=== PATIENT | male | born 1975 | race African-American/Black ===

== ENCOUNTER 2020-04-17 05:52 | Observation (INO) | payer OTHER ==
[2020-04-13 12:36] LABS: BASOPHILS % 0.7 % (0.0-1.0); EOSINOPHILS # (AUTO) 0.1 (0.0-0.4); EOSINOPHILS % 1.4 % (0.0-6.0); HEMATOCRIT 47.9 % (38.2-49.6); HEMOGLOBIN 15.4 g/dL (14.0-18.0); LYMPHOCYTES # (AUTO) 1.3 (1.0-3.2); LYMPHOCYTES % 22.1 % (18.0-39.1); MEAN CORPUSCULAR HEMOGLOBIN 25.9 pg (28-32); MEAN CORPUSCULAR HGB CONC 32.2 g/dL (31-35); MEAN CORPUSCULAR VOLUME 80.5 fL (81-99); MONOCYTES # (AUTO) 0.4 (0.2-0.8); MONOCYTES % 7.1 % (4.4-11.3); NEUTROPHILS # (AUTO) 3.9 (2.1-6.9); NEUTROPHILS % 68.3 % (38.7-80.0); PLATELET COUNT 247 x10e3/uL (140-360); RED BLOOD COUNT 5.95 x10e6/uL (4.3-5.7); RED CELL DISTRIBUTION WIDTH 13.2 % (11.7-14.4)
[~2020-04-17] VITALS: Ht 177.8 cm; Wt 90.7 kg
[~2020-04-17 05:52] MED LIST: ABILIFY5 MG PO; KLONOPIN0.5 MG PO; TRAZODONE HCL50 MG PO; WELLBUTRIN SR150 MG PO; ZOLOFT50 MG PO
[2020-04-17] MEDS ORDERED: CELECOXIB 200 MG CAP ONE (06:53)
[2020-04-17] MEDS ORDERED: CEFAZOLIN SOD 1 GM/NS 50ML 100 ML IV ONE (06:54)
[2020-04-17] MEDS ORDERED: GABAPENTIN 300 MG CAP ONE (06:54)
[2020-04-17] MEDS ORDERED: DEXAMETHASONE SOD PHOS 10 MG/1 ML VIAL ONE (06:54)
[2020-04-17] MEDS ORDERED: BUPIVACAINE 7.5MG/ML /DEXTROSE 82.5MG/ML 2 ML AMP INJ ONE (07:49)
[2020-04-17] MEDS ORDERED: VANCOMYCIN HCL 1,000 MG ONE (07:55)
[2020-04-17] MEDS ORDERED: SODIUM CHLORIDE 0.9% 500ML 500 ML ONE (07:55)
[2020-04-17] MEDS ORDERED: TRANEXAMIC ACID 1,000 MG/10 ML ML ONE (07:56)
[2020-04-17] MEDS ORDERED: BACITRACIN 50,000 UNIT VIAL ONE (07:56)
[2020-04-17] MEDS ORDERED: ROPIVACAINE 246.25 MG, EPINEPHRINE HCL 1:1000 1ML 0.5 MG, CLONIDINE HCL 0.08 MG, KETORO... INJ ONE ×5 (08:00)
[2020-04-17] MEDS ORDERED: ONDANSETRON HCL INJ 2MG/ML 2ML 2 MG/ML VIAL IV PRN (10:30)
[2020-04-17] MEDS ORDERED: ACETAMINOPHEN 650 MG SUPP PR PRN (10:30)
[2020-04-17] MEDS ORDERED: DIPHENHYDRAMINE HCL INJ 50 MG/ML VIAL IV PRN (10:30)
[2020-04-17] MEDS ORDERED: KETOROLAC TROMETHAMINE 30 MG/ML VIAL IV PRN (10:30)
[2020-04-17] MEDS ORDERED: DOCUSATE SODIUM 100 MG CAP PO PRN (10:30)
[2020-04-17] MEDS ORDERED: HYDROCODONE/APAP 5MG-325MG TAB PO PRN (10:30)
[2020-04-17] MEDS ORDERED: PROMETHAZINE HCL (IM) 25 MG/ML VIAL ONE (10:47)
--- OUTSIDE RECORDS SUMMARY | 2020-04-17 10:49 | XMS REPORT | Clinical Summary ---
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 Active traZODone (DESYREL) 100 Take 100 mg 0 MG tablet by mouth nightly. Active methylphenidate HCl Take by 0 (RITALIN ORAL) mouth. Active losartan-hydrochlorothiaz TK 1 T PO D 0 07/25 debbie (HYZAAR) 50-12.5 mg 8 per tablet Active Problems Not on file Social History Date Tobacco Use Types Packs/Day Years Used Never Smoker Smokeless Tobacco: Never Used Drinks/Week oz/Week Comments Alcohol Use No Sex Assigned at Date Recorded Not on file Industry Job Start Date Occupation Not on file Not on file Not on file Travel End Travel History Travel Start No recent travel history available. Last Filed Vital Signs Not on file Plan of Treatment Health Maintenance Due Date Last Done Comments INFLUENZA VACCINE 06/23/2020 Implants Device Identifier Shelf Expiration Date Model / Serial / L ot Implanted Type Area [facility] 12/24/2022 XL [id number] / [id number] / [id number] Epifix Xl 4 X 10 - Surgical Left: Elbow MIMEDX [id number] - [id number] Implants; [employer] Implanted: Qty: 1 on 04/30/2018 by [employer]; Armen Holley MD at [facility]; [facility] Wires Results Not on fileafter 04/17/2019 Insurance Type Payer Benefit Subscriber ID Effective Phone Address Plan / Dates Group PPO BCBS BCBS xxxxxxxxxxxx [id number] CHOICE resent PPO/DARLENE JESUS PPO Advance Directives For more information, please contact: [phone] Patient Adult Care Provider Explanation Type Date Recorded Advance Directives, 04/23/2018 2:38 PM Living Will and Medical Power of Auto Clutch Specialist
--- OUTSIDE RECORDS SUMMARY | 2020-04-17 10:49 | XMS REPORT ---
Author Author [facility] t Organization [facility] Address 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 Allergies, Adverse Reactions, Alerts This patient has no known allergies or adverse reactions. Social History Social Habit Start Date Stop Date Quantity Comments Source Sex Assigned At Rommel amyshaneka Meek Alcohol intake 2018-09-27 00:00:00 2018-09-27 00:00:00 Current non-drinker of alcohol (finding) Omid Eden Smoking Status Start Date Stop Date Source Never smoker Omid villatoro Medications Ordered Medication Name Filled Medication Name Start Date Stop Da te Current Medication? Ordering Clinician Indication Dosage Frequency Signature (SIG) Comments Components Source Sulfamethoxazole/Trimethoprim (Bactrim Ds Tablet) 1 Ea ch Tablet, 1 Each Oral Sulfamethoxazole/Trimethoprim (Bactrim Ds Tablet) 1 Each Tablet, 1 Each Oral 2018-10-22 00:00:00 2018-12-13 00:00:00 No José Manuel Gann Md 1 Twice A Day [facility] losartan-hydrochlorothiazide (HYZAAR) 50-12.5 mg per tablet 2018-08-18 00:00:00 Yes TK 1 T PO D Rommel allen Eden sertraline (ZOLOFT) 25 MG tablet 2018-04-30 11:36:13 Yes 25mg QD Take 25 mg by mouth daily. Omid Eden traZODone (DESYREL) 100 MG tablet 2018-04-30 11:36:13 Yes 100mg QD Take 100 mg by mouth nightly. Omid churchill methylphenidate HCl (RITALIN ORAL) 2018-04-30 11:36:13 Yes Take by mouth. Omid Eden Fluoxetine Hcl (Prozac) 20 Mg Capsule Fluoxetine Hcl (Prozac) 20 Mg Capsule Yes Daily [facility] Loratadine 10 Mg Tablet Loratadine 10 Mg Tablet Yes 10 Bedtime [facility] Methylphenidate Hcl 5 Mg Tablet Methylphenidate Hcl 5 Mg Tablet Yes Daily [facility] Rosuvastatin Calcium (Crestor) 5 Mg Tablet Rosuvastati n Calcium (Crestor) 5 Mg Tablet Yes Daily [facility] Trazodone Hcl 50 Mg Tablet Trazodone Hcl 50 Mg Tablet Yes 100 Bedtime [facility] Atorvastatin Calcium (Lipitor) 20 Mg Tablet, 10 Mg Ora l Atorvastatin Calcium (Lipitor) 20 Mg Tablet, 10 Mg Oral 2018-12-08 00:00:00 No 1 0 Daily [facility] Losartan/Hydrochlorothiazide (Losartan-H ctz 50-12.5 Mg Tab) 1 Each Tablet, 1 Tab Oral Losartan/Hydrochlorothiazide (Losartan-H ctz 50-12.5 Mg Tab) 1 Each Tablet, 1 Tab Oral 2018-12-08 00:00:00 No 1 Daily [facility] Procedures Procedure Date / Time Performed Performing Clinician [facility] e Computed tomography of brain without radiopaque contrast 201 07-31-28 00:00:00 NEGRITO PAPPAS [facility] Computed tomography of chest with contrast 2019-02-16 00:00:00 LINDA HONG [facility] X-ray of chest, two views 2019-02-15 00:00:00 ARNULFO GUIDRY V [facility] DRAIN/INJ JOINT/BURSA W/O US 2018-12-13 00:00:00 ESTHELA NAVARRO [facility] CYSTOSCOPY 2018-10-22 00:00:00 JOSÉ MANUEL GANN [facility] X-ray of chest, two views 2018-10-20 00:00:00 JOSÉ MANUEL GANN [facility] Plan of Care Planned Activity Planned Date Details Comments Source Future Scheduled Test 2020-06-23 00:00:00 INFLUENZA VACCINE [code = INFLUENZA VACCINE] Omid Eden Encounters Start Date/Time End Date/Time Encounter Type Admission Type [facility] Care Department Encounter ID Source 2019-07-20 01:49:00 2019-07-20 03:45:00 Departed Emergency Room 1 NEGRITO PAPPAS [facility] [id number] [facility] 2019-02-15 10:37:00 2019-02-17 08:25:00 Discharged Inpatient (obs) 1 NILO BOWEN [facility] [id number] [facility] 2019-01-07 23:17:00 2019-01-08 01:27:00 Departed Emergency Room [facility] [id number] [facility] 2018-12-13 05:00:00 2018-12-13 05:00:00 Registered Surgical Day Care [facility] [id number] [facility] 2018-10-22 08:46:00 2018-10-22 08:46:00 Registered Surgical Day Car e JOSÉ MANUEL DERAS [facility] [id number] [facility] Results Test Description Test Time Test Comments Results Result Comments Source Urine WBC 2019-07-20 03:29:00 Test Item Urine WBC (test code = 5821-4) 6-10 0-5 [facility] [id number] 03:29:00* Test Item Value Reference Range Interpretation Comments Urine RBC (test code = 13407-9) 11-20 0-5 [facility] Gwfachhf8423-37-50 03:29:00* Test Item Value Reference Range Interpretation Comments Urine Bacteria (test code = 98704-0) RARE NONE [facility] Epithelial Awyfu7277-53-12 03:29:00 * Test Item Value Reference Range Interpretation Comments Urine Epithelial Cells (test code = 07909-5) RARE NONE [facility] Bihix1158-32-73 03:19:00* Test Item Value Reference Range Interpretation Comments Urine Color (test code = 5778-6) YELLOW YELLOW [facility] Vleswbu2896-56-92 03:19:00* Test Item Value Reference Range Interpretation Comments Urine Clarity (test code = 72925-8) CLEAR CLEAR [facility] Specific Jyprrgy5075-75-63 03:19:00 * Test Item Value Reference Range Interpretation Comments Urine Specific [place] (test code = 5811-5) 1.020 1.010-1.02 5 [facility] [id number] 03:19:00* Test Item Value Reference Range Interpretation Comments Urine pH (test code = 43061-4) 8 5-7 [facility] Leukocyte Nvuofbmz3755-84-09 03:19:00* Test Item Value Reference Range Interpretation Comments Urine Leukocyte Esterase (test code = 28828-4) NEGATIVE NEGATIV E [facility] Uujtkzk3383-67-37 03:19:00* Test Item Value Reference Range Interpretation Comments Urine Nitrite (test code = 93463-6) NEGATIVE NEGATIVE [facility] Lffrzep7605-82-60 03:19:00* Test Item Value Reference Range Interpretation Comments Urine Protein (test code = 23606-3) NEGATIVE NEGATIVE [facility] Glucose (UA)2019-07-20 03:19:00* Test Item Value Reference Range Interpretation Comments Urine Glucose (UA) (test code = 97376-7) 3+ NEGATIVE [facility] Bllfymb4672-15-60 03:19:00* Test Item Value Reference Range Interpretation Comments Urine Ketones (test code = 57012-1) NEGATIVE NEGATIVE [facility] Nsajwzramnhk8687-69-58 03:19:00* Test Item Value Reference Range Interpretation Comments Urine Urobilinogen (test code = 39220-1) 0.2 0.2-1 [facility] Tzvzxtwbz8686-85-89 03:19:00* Test Item Value Reference Range Interpretation Comments Urine Bilirubin (test code = 1977-8) NEGATIVE NEGATIVE [facility] Ujkxt7389-10-10 03:19:00* Test Item Value Reference Range Interpretation Comments Urine Blood (test code = 57644-8) TRACE NEGATIVE [facility] Uzkot5758-71-94 02:57:00* Test Item Value Reference Range Interpretation Comments Sodium Level (test code = 2951-2) 137 136-145 [facility] HospitalPotassium Pkags1727-31-39 02:57:00* Test Item Value Reference Range Interpretation Comments Potassium Level (test code = 2823-3) 4.2 3.5-5.1 [facility] HospitalChloride Eoswr5301-87-81 02:57:00* Test Item Value Reference Range Interpretation Comments Chloride Level (test code = 2075-0) 103 98-107 [facility] HospitalCarbon Dioxide Equue5586-58-74 02:57:00* Test Item Value Reference Range Interpretation Comments Carbon Dioxide Level (test code = 2028-9) 29 22-29 [facility] HospitalAnion Agh2882-94-83 02:57:00* Test Item Value Reference Range Interpretation Comments Anion Gap (test code = 66508-9) 9.2 8-16 [facility] HospitalBlood Urea Dozgydgr4849-76-28 02:57:00* Test Item Value Reference Range Interpretation Comments Blood Urea Nitrogen (test code = 3094-0) 11 - [facility] HospitalCreatinine2019-08-28 02:57:00* Test Item Value Reference Range Interpretation Comments Creatinine (test code = 2160-0) 0.97 0.72-1.25 [facility] HospitalBUN/Creatinine Nzeyp0996-44-30 02:57:00* Test Item Value Reference Range Interpretation Comments BUN/Creatinine Ratio (test code = 3097-3) 11 05-17 [facility] HospitalEstimat Glomerular Filtration Rate 2019-07-20 02:57:00* Test Item Value Reference Range Interpretation Comments Estimat Glomerular Filtration Rate (test code = 660869925) > 60 >60 Ranges were taken from the National Kidney Disease Education Program and the [facility] Kidney Foundation literature.Reference ranges:60 or greater: Skoyyt05-86 ( for 3 consecutive months): Chronic kidney disease 15 or less: Kidney failureHuntsville Memorial HospitalGlucose Xlbhk6624-56-63 02:57:00* Test Item Value Reference Range Interpretation Comments Glucose Level (test code = STE8879) 162 74-118 [facility] HospitalCalcium Ncqbr2354-92-93 02:57:00* Test Item Value Reference Range Interpretation Comments Calcium Level (test code = 41980-1) 9.5 8.4-10.2 [facility] HospitalWhite Blood Evuwx9485-77-15 02:39:00* Test Item Value Reference Range Interpretation Comments White Blood Count (test code = 6690-2) 9.66 4.8-10.8 [facility] HospitalRed Blood Wgucg1966-43-58 02:39:00* Test Item Value Reference Range Interpretation Comments Red Blood Count (test code = 789-8) 5.37 4.3-5.7 [facility] HospitalHemoglobin2019-08-28 02:39:00* Test Item Value Reference Range Interpretation Comments Hemoglobin (test code = 51110-3) 14.5 14.0-18.0 [facility] HospitalHematocrit2019-08-28 02:39:00* Test Item Value Reference Range Interpretation Comments Hematocrit (test code = 4544-3) 44.2 38.2-49.6 [facility] HospitalMean Corpuscular Oubcpn4126-37-37 02:39:00* Test Item Value Reference Range Interpretation Comments Mean Corpuscular Volume (test code = 787-2) 82.3 81-99 [facility] HospitalMean Corpuscular Csdtvescvg7350-61-30 02:39:00* Test Item Value Reference Range Interpretation Comments Mean Corpuscular Hemoglobin (test code = 785-6) 27.0 28-32 [facility] HospitalMean Corpuscular Hemoglobin Concent 2019-07-20 02:39:00* Test Item Value Reference Range Interpretation Comments Mean Corpuscular Hemoglobin Concent (test code = 786-4) 32.8 31-35 [facility] HospitalRed Cell Distribution Ciaap7884-89-13 02:39:00* Test Item Value Reference Range Interpretation Comments Red Cell Distribution Width (test code = 56309-1) 13.2 11.7 -14.4 [facility] HospitalPlatelet Jdjxh9001-89-21 02:39:00* Test Item Value Reference Range Interpretation Comments Platelet Count (test code = 777-3) 240 140-360 [facility] HospitalNeutrophils (%) (Auto)2019-07-20 02:39:00 * Test Item Value Reference Range Interpretation Comments Neutrophils (%) (Auto) (test code = 57290-4) 89.7 38.7-80.0 [facility] HospitalLymphocytes (%) (Auto)2019-07-20 02:39:00 * Test Item Value Reference Range Interpretation Comments Lymphocytes (%) (Auto) (test code = 736-9) 7.1 18.0-39.1 [facility] HospitalMonocytes (%) (Auto)2019-07-20 02:39:00* Test Item Value Reference Range Interpretation Comments Monocytes (%) (Auto) (test code = 5905-5) 2.1 4.4-11.3 [facility] HospitalEosinophils (%) (Auto)2019-07-20 02:39:00 * Test Item Value Reference Range Interpretation Comments Eosinophils (%) (Auto) (test code = 713-8) 0.0 0.0-6.0 [facility] HospitalBasophils (%) (Auto)2019-07-20 02:39:00* Test Item Value Reference Range Interpretation Comments Basophils (%) (Auto) (test code = 706-2) 0.1 0.0-1.0 [facility] HospitalIM GRANULOCYTES %2019-07-20 02:39:00* Test Item Value Reference Range Interpretation Comments IM GRANULOCYTES % (test code = IM GRANULOCYTES %) 1.0 0.0- 1.0 [facility] HospitalNeutrophils # (Auto)2019-07-20 02:39:00* Test Item Value Reference Range Interpretation Comments Neutrophils # (Auto) (test code = 751-8) 8.7 2.1-6.9 [facility] HospitalLymphocytes # (Auto)2019-07-20 02:39:00* Test Item Value Reference Range Interpretation Comments Lymphocytes # (Auto) (test code = 14102-1) 0.7 1.0-3.2 [facility] HospitalMonocytes # (Auto)2019-07-20 02:39:00* Test Item Value Reference Range Interpretation Comments Monocytes # (Auto) (test code = 742-7) 0.2 0.2-0.8 [facility] HospitalEosinophils # (Auto)2019-07-20 02:39:00* Test Item Value Reference Range Interpretation Comments Eosinophils # (Auto) (test code = 711-2) 0.0 0.0-0.4 [facility] HospitalBasophils # (Auto)2019-07-20 02:39:00* Test Item Value Reference Range Interpretation Comments Basophils # (Auto) (test code = 704-7) 0.0 0.0-0.1 [facility] HospitalAbsolute Immature Granulocyte (auto 2019-07-20 02:39:00* Test Item Value Reference Range Interpretation Comments Absolute Immature Granulocyte (auto (lynette t code = Absolute Immature Granulocyte (auto) 0.10 0-0.1 [facility] HospitalCT BRAIN PL9267-22-05 02:30:00 [facility] [address] [address] Patient Name: JORDAN WAGNER MR #: [id number] : 1975 Age/Sex: 44/M Req #: [id number] Adm Physician: Ordered by: NEGRITO PAPPAS DO Report #: [id number] Location: ER Room/Bed: Procedure: [id number] CT/CT BRAIN WO Exam Date: 07/20/19 Exam Time: 219 REPORT STATUS: Signed EXAMINATION: Head CT without contrast. HISTORY:Headache, nausea and vomiting. COMPARISON:None. TECHNIQUE: Multidetector axial images were obtained from the foramen magnum to the vertex without contrast. The images were reconstructed using brain and bone algorithms. Thin section brain images were reformatted into coronal and sagittal planes. Dose modulation, iterative reconstruction, and/or weight based adjustment of the mA/kV was utilized to reduce the radiat ion dose to as low as reasonably achievable. Intravenous contrast: None IMAGE QUALITY: Acceptable. FINDINGS: Skull/scalp: No lytic or b lastic. lesions. No surgical changes. Parenchyma: No abnormal density. No acute hemorrhage, mass or acute major vascular territorial infarct. Art eries: No density suggestive of thrombosis. Dural sinuses: No abnormal density suggestive of thrombosis. Ventricles: No hydrocephalus or displac ement. Extra-axial spaces: No abnormal density. Brain volume: Norm al for age. Craniocervical junction: No mass, Chiari malformation, or basi lar invagination. Sella: No mass. Paranasal/mastoid sinuses: Imag ed portions unremarkable. IMPRESSION: No intracranial abnormality. Signed by: Dr. Sherice Patel M.D. on 07/20/2019 2:33 AM Dictated By: SHERICE PATEL MD 023 3 Transcribed By: NIKOLAI on 07/20/19 0233 COPY TO: NEGRITO PAPPAS DO Stress Test - Treadmill NAKL0784-94-94 12:57:00 [address] [address] Patient Name : JORDAN WAGNER MR #: [id number] : 1975 Age/Sex: 43/M Adm Physician : NILO BOWEN MD Admit Date : 02/15/19 Location : MED/SURG Room/Bed : [facility] REPORT: Thiago view Stress Test DATE OF STUDY: 02/16/2019 08:02:00 Stress Test - Tia dmill ONLY STUDY PERFORMED: Lexiscan stress test. INDICATION: Ches t pain. DESCRIPTION OF PROCEDURE: After informed consent, the patient was brought to the stress lab. He was given 10 millicurie of technetium-99m Myov iew and myocardial perfusion SPECT image was obtained in the horizontal long a xis and short axis and vertical long axis views. Subsequently, the patient wa s given 0.4 mg of Lexiscan over 10 seconds. The patient was given 33 mill icuries technetium-99m Myoview and myocardial perfusion SPECT images obtained in horizontal long and short axis and vertical long axis. Gated images were a lso obtained. The patient tolerated the procedure without any complication. REPORT: Baseline EKG shows sinus rhythm at 63 beats per minute. Normal a xis. Normal intervals. No acute ST-T changes. Parameters: 1. Restin g heart rate is 96 beats per minute. 2. Maximal heart rate is 96 beats per min [place]. 3. Resting blood pressure is 131/81 mmHg. 4. Maximum blood pressure 135 /86 mmHg. REASON FOR TERMINATION: End point attained. INTERPRETATIO N: 1. Negative chest pain. 2. Negative for arrhythmias. 3. Blood pressur e response consistent with Lexiscan. 4. No significant ST-T changes seen durin g Lexiscan infusion compared to baseline. 5. Analysis of SPECT images reveals uniform radioisotope uptake in all segments of myocardium without any signific ant perfusion defects. CONCLUSIONS: 1. No evidence of significant isc hemia or infarction on the study. 2. No wall motion abnormalities. 3. Overal l ejection fraction is 56%. S MD EAGLE Valle/LEONEL 14:5 0:31 /[id number] Signature Date Dictated By: LINDA VIEYRA MD Transcribed By: LEONEL on 02/22/19 <Electronically signed by LINDA VIEYRA MD><<Signature on File>>02/23/19 0910 COPY TO: CT CHEST K1211-20-51 20:02:00 [address] [address] Patient Name: JORDAN WAGNER MR #: [id number] : 1975 Age/Sex: 43/M Req #: [id number] Adm Physician: NILO BOWEN MD Ordered by: LINDA VIEYRA MD Report #: [id number] Location: MED/SURG Room/Bed: [facility] Procedure: [id number]/CT CHEST W Exam Date: 02/16/19 Exam Time: 1830 REPORT STATUS: Signed CT chest pulmonary embolism protocol CPT code: 66200 INDICATION: Exertional ch est pain r/o pe [id number] TECHNIQUE: Thin collimation axial images obtained through the level of the pulmonary arteries with additional im aging through the chest following the uneventful administration of 100 cc of l ow osmolar, nonionic intravenous contrast. Images reconstructed into coronal and sagittal MIPs for complete evaluation of the tortuous and overlapping pulm onary vascular structures and to reduce patient radiation dose. RADIATIO N DOSE: Total DLP: 607.5 mGy*cm Estimated effective dose: (DLP x 0 .015 x size factor) mSv CTDIvol has been reviewed. It is below the limits set by the Radiation Protocol Committee (RPC). Dose reduction techniques used: Automated exposure control, adjustment of the mAs and/or kVp according to patient size, standardized low-dose protocol, and/or iterative reconstructi on technique. COMPARISON: Chest x-ray 02/15/2019. FINDINGS: Pulmonary artery: No filling defects are appreciated within the main, left, right, lobar or visualized segmental pulmonary arteries to suggest embolism. Aorta: Mild ectasia of the arch. Lymph nodes: No enlarged axillary, supra clavicul ar, mediastinal, or hilar lymph nodes. Thyroid: Normal in size without ma ss in the visualized parenchyma.. Mediastinum: Thymic tissue has involuted. The heart is mildly enlarged with prominence of the left ventricular vail. P ericardial effusion measures 1.1 cm. The esophagus is collapsed Lungs: Airways: Clear. Right Lung: Mild bronchial wall thickening. Subtle air trapping in the lung base. No consolidation. No mass. Left Lung: Mild br onchial wall thickening. Subtle air trapping in the lung bases. No consolidati on. No mass. Pleura: No pleural effusion or pleural based mass.. Abdom en: Visualized portions of the upper abdomen demonstrate no mass or lymphadeno eva. Bones: Mild degenerative changes of the spine. No focal osseous lesi ons. Soft tissues: Unremarkable. IMPRESSION: 1. No evidence of p ulmonary embolus.. 2. Diffuse bronchial wall thickening suggestive of bronchi tis. Mild bibasilar air trapping is suggestive of small airways disease. 3. Mild cardiomegaly with left ventricular hypertrophy. Small pericardial effusio n. Signed by: Dr. Getachew Rothman MD on 02/16/2019 8:08 PM Dictate d By: GETACHEW ROTHMAN MD 07 COPY TO: Nelson VIEYRA MD Triglycerides Zktml5822-96-11 06:45:00* Test Item Value Reference Range Interpretation Comments Triglycerides Level (test code = 2571-8) 119 0-149 [facility] HospitalCholesterol Udtcu2527-53-56 06:45:00* Test Item Value Reference Range Interpretation Comments Cholesterol Level (test code = 2093-3) 235 0-199 Less than 200 mg/dL Low Mdyf754 - 239 mg/dL Borderline Hkfx656 m g/dl and greater High Risk [facility] HospitalLDL Owtwtyakquq9274-69-98 06:45:00* Test Item Value Reference Range Interpretation Comments LDL Cholesterol (test code = 2089-1) 160 60-130 [facility] HospitalHDL Mwlkivqgwck7996-18-48 06:45:00* Test Item Value Reference Range Interpretation Comments HDL Cholesterol (test code = 2085-9) 51 40-60 [facility] HospitalCholesterol/HDL Qdlnr2157-70-41 06:45:00 * Test Item Value Reference Range Interpretation Comments Cholesterol/HDL Ratio (test code = 9830-1) 4.6 3.9-4.7 [facility] HospitalCreatine Zuyakw5774-22-97 06:27:00* Test Item Value Reference Range Interpretation Comments Creatine Kinase (test code = 2157-6) 61 30-200 [facility] HospitalCreatine Kinase GS8005-77-38 06:27:00* Test Item Value Reference Range Interpretation Comments Creatine Kinase MB (test code = 07081-1) 0.50 0-5.0 [facility] HospitalTroponin B7073-22-68 06:27:00* Test Item Value Reference Range Interpretation Comments Troponin I (test code = DZJ7101) 0.002 0-0.300 [facility] HospitalB-Type Natriuretic Gisdjbw4807-84-78 10:23:00* Test Item Value Reference Range Interpretation Comments B-Type Natriuretic Peptide (test code = 36239-5) 21.0 0-100 [facility] BYJNV9213-01-60 10:16:00 [facility] [address] [address] Patient Name: JORDAN WAGNER MR #: [id number] : 1975 Age/Sex: 43/M Req #: [id number] Adm Physician: Ordered by: RANULFO GUIDRY MD Report #: [id number] Location: ER Room/Bed: Procedure: [id number] DX/CHEST 2 VIEWS Exam Date: 02/15/19 Exam Time: 0950 REPORT STATUS: Signed EXAM: CHEST 2 VIEWS, PA and lateral DATE: 02/15/2019 Time stamp on exam: 9:59 AM INDICATION: Chest pain COMPARISON: 10/20/2018 FINDINGS: LINES/TUBES: No ne LUNGS: No consolidations or edema. PLEURA: No effusions or pneumot horax. HEART AND MEDIASTINUM: Normal size and contour. BONES AND SOFT TISSUES: No acute findings. IMPRESSION: No acute thoracic abnormality. Signed by: Dr. Salomón Beckham DO on 02/15/2019 10:17 AM Di ctated By: SALOMÓN BECKHAM DO 1017 COPY TO: MEET GUIDRY MD Total Yhwsoalos1034-37-22 10:14:00* Test Item Value Reference Range Interpretation Comments Total Bilirubin (test code = 1975-2) 0.4 0.2-1.2 [facility] HospitalAspartate Amino Transf (AST/SGOT) 2019-02-15 10:14:00* Test Item Value Reference Range Interpretation Comments Aspartate Amino Transf (AST/SGOT) (test code = Aspartate Amino Transf (AST/SGOT)) 14 5-34 [facility] HospitalAlanine Aminotransferase (ALT/SGPT) 2019-02-15 10:14:00* Test Item Value Reference Range Interpretation Comments Alanine Aminotransferase (ALT/SGPT) (test code = 1742-6) 20 0-55 [facility] HospitalTotal Zigqoiu1219-86-69 10:14:00* Test Item Value Reference Range Interpretation Comments Total Protein (test code = 2885-2) 6.6 6.5-8.1 [facility] HospitalAlbumin2019-03-26 10:14:00* Test Item Value Reference Range Interpretation Comments Albumin (test code = 1751-7) 3.6 3.5-5.0 [facility] HospitalGlobulin2019-03-26 10:14:00* Test Item Value Reference Range Interpretation Comments Globulin (test code = 40171-8) 3.0 2.3-3.5 [facility] HospitalAlbumin/Globulin Auzqn2772-67-75 10:14:00 * Test Item Value Reference Range Interpretation Comments Albumin/Globulin Ratio (test code = 1759-0) 1.2 0.8-2.0 [facility] HospitalAlkaline Vwnlahtyvpr4265-84-80 10:14:00* Test Item Value Reference Range Interpretation Comments Alkaline Phosphatase (test code = 6768-6) 62 40-150 [facility] [id number] 10:06:00* Test Item Value Reference Range Interpretation Comments Prothrombin Time (test code = 5902-2) 12.4 11.9-14.5 [facility] International Ratio 2019-02-15 10:06:00* Test Item Value Reference Range Interpretation Comments Prothromb Time International Ratio (test code = 6301-6) 0.88 Oral Anticoagulant Therapy INR Values:1. Low Intensity Therapy 1.5 - 2.02 . Moderate Intensity Therapy 2.0 - 3.03. High Intensity Therapy(1) 2.5 - 3. 54. High Intensity Therapy(2) 3.0 - 4.05. Panic Value INR > 5.0 [facility]Act[facility] Partial Thromboplast Time 2019-02-15 10:06:00* Test Item Value Reference Range Interpretation Comments Activated Partial Thromboplast Time (test code = 24992-2) 27.9 23.8-35.5 [facility] HospitalCHEST 2 [id number] 18:48:00 [facility] [address] [address] Patient Name: JORDAN WAGNER MR #: [id number] : 1975 Age/Sex: 43/M Req #: [id number] Adm Physician: Ordered by: JOSÉ MANUEL GANN MD Report #: [id number] Location: OR Room/Bed: Procedure: [id number] DX/CHEST 2 VIEWS Exam Date: 10/20/18 Exam Time: 1739 REPORT STATUS: Signed EXAMINATI ON: CHEST 2 VIEWS INDICATION: ORDER [id number] PRE ADMIT COMPARISON: None FINDINGS: PA and lateral views TUBES and LINES: None. LUNGS: Lungs are well inflated. Lungs are clear. There is no evidence of pneumonia or pulmonary edema. PLEURA: No pleu ral effusion or pneumothorax. HEART AND MEDIASTINUM: The cardiomediastinal silhouette is unremarkable. BONES AND SOFT TISSUES: No acute osseous lesion. Soft tissues are unremarkable. UPPER ABDOMEN: No free air under the diaphragm. IMPRESSION: No acute thoracic abnormality. Si gned by: Dr. Evan Price MD on 10/20/2018 6:48 PM Dictated By: EVAN DOHERTY MD 47 Transcri bed By: NIKOLAI on 10/20/181847 COPY TO: JOSÉ MANUEL GANN MD
[2020-04-17 12:06] LABS: BASOPHILS % 0.3 % (0.0-1.0); HEMATOCRIT 44.6 % (38.2-49.6); HEMOGLOBIN 13.6 g/dL (14.0-18.0); LYMPHOCYTES # (AUTO) 0.8 (1.0-3.2); LYMPHOCYTES % 8.7 % (18.0-39.1); MEAN CORPUSCULAR HGB CONC 30.5 g/dL (31-35); MEAN CORPUSCULAR VOLUME 85.1 fL (81-99); MONOCYTES # (AUTO) 0.1 (0.2-0.8); NEUTROPHILS # (AUTO) 8.2 (2.1-6.9); NEUTROPHILS % 89.5 % (38.7-80.0); PLATELET COUNT 206 x10e3/uL (140-360); RED BLOOD COUNT 5.24 x10e6/uL (4.3-5.7); RED CELL DISTRIBUTION WIDTH 13.2 % (11.7-14.4)
--- NOTE | 2020-04-17 12:12 | Diagnostic Imaging Report ---
X-ray left hip single view portable History: Status post left hip surgery Findings: Status post left hip total arthroplasty with soft tissue air and surgical eduardo. The hardware is in near-anatomic alignment. Impression: Status post left hip portal arthroplasty. Signed by: Fransico Velasquez MD on 04/17/2020 12:09 PM
--- NOTE | 2020-04-17 12:24 | Operative Report ---
DATE OF PROCEDURE: 04/17/2020 SURGEON: Marquez Rosales MD GUITAR INSTRUCTOR: Daron Back, certified PA. PREOPERATIVE DIAGNOSIS: Osteoarthritis, left hip. POSTOPERATIVE DIAGNOSIS: Osteoarthritis, left hip. PROCEDURE: Left total hip arthroplasty. INDICATIONS: The patient is a 44-year-old gentleman with advanced osteoarthritis of his left hip. He has failed conservative management and would like to proceed with a left total hip replacement. The risks and benefits of the procedure have been discussed. The possibility of future revision procedures due to his age have been explained. All of his questions have been answered. He states he understands and wishes to proceed. PROCEDURE IN DETAIL: The patient was brought to the operating room and given a spinal anesthetic. He received prophylactic antibiotics and tranexamic acid in the holding area. He was positioned in the right lateral decubitus position. His left hip was prepped and draped in a sterile manner. A preoperative time-out was performed. A posterior approach was made to the left hip. A slightly bigger incision and normal was necessary due to the bulk of his muscle. A deep Charnley self-retaining retractor was placed. Hemostasis was obtained with electrocautery. The posterior capsule was exposed and carefully released. Additional hemostasis was obtained with electrocautery. The hip was dislocated. Complete loss of articular cartilage in the weightbearing surface of the femoral head was noted. An oscillating saw was used to resect the femoral head. Acetabular retractors were carefully placed. Exposure was challenging due to the contracted hip. Marginal osteophytes and labral remnants were excised. The true floor of the acetabulum was then established with a 46 mm reamer. The socket was sequentially reamed up to 57 mm. This accomplished bleeding hemispherical cancellous bone. A Татьяна Biomet 58 mm OsseoTi socket was then impacted into place. Fixation was augmented with a single 30 mm cancellous screw placed into the ilium. Excellent bone quality was encountered. A highly cross-linked polyethylene liner with a 36 mm inner diameter in no posterior elevation was seated. Care was taken to make sure that there was no evidence of soft tissue interposition. Throughout all portions of the case, the hip was repeatedly irrigated at intervals using a combination of a shower tip pulsatile lavage and a spray mixture of diluted vancomycin and polymyxin spray. The socket was packed with a moistly soaked lap sponge. Attention was directed towards the proximal femur. A box cutting osteotome and taper pin reamer were used to establish entry to the femoral canal. The Татьяна taper lock broaches were impacted into place. A size 13 stem had good canal fill and stability. A trial reduction was performed. I felt that a standard 36 mm head provided appropriate offset, soft tissue balancing in full range of motion and stability. The trial implants were removed. The hip was further irrigated with the shower tip pulsatile lavage. The implants were seated. A ceramic 36 mm head was impacted onto the stem. A final reduction was performed. The hip was once again put through a full arc of motion and noted to have good stability. Hoahaoism of limb length, equal. The posterior capsule was repaired with #2 Ethibond. The deep fascia was closed after sprinkling 500 mg of vancomycin powder into the deep wound. A 100 mL premixed pericapsular CHAPIS injection was placed into the surrounding soft tissue. The skin was closed with subcuticular Vicryl and eduardo. A sterile Aquacel bandage was applied. The patient was returned to the supine position. He was transported to the recovery room in stable condition. Estimated blood loss was 100 mL. At the end of the procedure, all needle and sponge counts were correct. Marquez Rosales MD DR/LEONEL /[id number]
[2020-04-17 12:46] VITALS: BP 117/79
[2020-04-17] MEDS ORDERED: SODIUM CHLORIDE 0.9% 1000ML 1,000 ML IV SCH (12:50)
[2020-04-17 12:54] VITALS: BP 117/79
--- NOTE | 2020-04-17 12:55 | NUR ---
patient received from pacu via stretcher. see admit assess. patient very verbally aggressive and yelling at . no c/o pain at this time. vitals stable with no distress.
--- NOTE | 2020-04-17 15:14 | NUR ---
DR ONEIL OFFICE PREARRANGED FOLLOWING DISCHARGE PLAN OF: HOME TO [address] [facility] [address] HOME HEALTH WITH [facility] CONFIRMED WITH [facility] [phone] DME 3 IN ONE COMMODE. AND ROLLING WALKER WITH WHEELS. PROVIDED BY [facility] [phone] GAVE CARD FOR QUESTIONS AND OR CONCERNS.
[2020-04-17 16:26] VITALS: BP 117/73
[2020-04-17] MEDS: CEFAZOLIN SOD 1 GM/NS 50ML 50 ML IV SCH ×2 (17:15→23:46)
[2020-04-17] MEDS: CELECOXIB 200 MG CAP PO SCH (17:15)
[2020-04-17] MEDS: HYDROCODONE/APAP 7.5MG-325MG 1 EA TAB PO PRN (17:42)
--- NOTE | 2020-04-17 18:56 | NUR ---
RECEIVED REPORT FROM PREVIOUS NURSE. CALL LIGHT WITHIN REACH. PATIENT IN BED.
[2020-04-17 19:05] VITALS: BP 118/75
[2020-04-17] MEDS ORDERED: PROPOFOL IV EMULSION 10 MG/ML 20 ML VIAL ONE (19:40)
[2020-04-17] MEDS ORDERED: ONDANSETRON HCL INJ 2MG/ML 2ML 2 MG/ML VIAL ONE (19:40)
[2020-04-17] MEDS: ASPIRIN 325 MG TAB PO SCH (20:04)
[2020-04-17] MEDS ORDERED: ZOLPIDEM TARTRATE 5 MG TAB PO PRN (21:00)
[2020-04-17] MEDS ORDERED: TRAZODONE HCL 50 MG TAB PO SCH (21:00)
[2020-04-18] VITALS: BP 107/72
[2020-04-18 03:45] VITALS: BP 118/77
[2020-04-18] MEDS: HYDROCODONE/APAP 7.5MG-325MG 1 EA TAB PO PRN (04:25)
--- NOTE | 2020-04-18 05:33 | Consultation ---
DATE OF CONSULTATION: REASON FOR CONSULTATION: Postop medical management. HISTORY OF PRESENT ILLNESS: The patient is a 44-year-old gentleman, who is status post left total hip arthroplasty, osteoarthritis, who is doing well postoperatively with minimal pain. He states pain is well controlled with medication. PAST MEDICAL HISTORY: Hypertension. MEDICATIONS: None. ALLERGIES: NONE. SOCIAL HISTORY: Nonsmoker and nondrinker. FAMILY HISTORY: Noncontributory. PHYSICAL EXAMINATION: VITAL SIGNS: Temperature 98.3, pulse 80, blood pressure 107/72, sats 96% on room air. GENERAL: He is no apparent distress, lying in bed. NECK: Supple. CARDIOVASCULAR: Regular rate and rhythm. LUNGS: Clear to auscultation bilaterally. ABDOMEN: Good bowel sounds. Soft and nontender. EXTREMITIES: No clubbing or cyanosis. NEUROLOGIC: Nonfocal. ASSESSMENT AND PLAN: 1. Status post left total hip arthroplasty. Continue postoperative care. 2. Anemia. Check a CBC. 3. Hypertension. Continue to monitor. 4. Left hip pain. We will continue with pain control. See hospital chart for full details. MD NOEMY Elder/LEONEL /[id number]
[2020-04-18 05:45] LABS: HEMATOCRIT 37.2 % (38.2-49.6); HEMOGLOBIN 11.9 g/dL (14.0-18.0)
--- NOTE | 2020-04-18 07:17 | NUR ---
GAVE REPORT TO ONCOMING NURSE. CALL LIGHT WITHIN REACH. PATIENT IN BED. ROUNDING DONE.
[2020-04-18 07:47] VITALS: BP 120/74
[2020-04-18] MEDS: CELECOXIB 200 MG CAP PO SCH (09:00)
[2020-04-18] MEDS ORDERED: ONDANSETRON HCL 4 MG ORAL DISINTEGRATING TAB PO PRN (09:00)
[2020-04-18] MEDS: CEFAZOLIN SOD 1 GM/NS 50ML 50 ML IV SCH (09:00)
[2020-04-18] MEDS: ASPIRIN 325 MG TAB PO SCH (09:00)
[2020-04-18 09:10] VITALS: BP 120/74
[2020-04-18] MEDS ORDERED: ACETAMINOPHEN 1000 MG/100 ML IV PRN (10:30)
[2020-04-18 11:58] VITALS: BP 126/78
--- NOTE | 2020-04-18 12:28 | NUR ---
SPOKE WITH LOLI AT [facility] SHE STATES THAT THEY CANNOT DELIVER THE WALKER OR BEDSIDE BECAUSE IT WAS A HIP SURGERY, NOTIFIED DR ONEIL OFFICE AND ISSUED A WALKER
--- NOTE | 2020-04-18 14:28 | NUR ---
DISCHARGE INSTRUCTIONS REVIEWED WITH PT , VERBALIZED UNDERSTANDING, WHEELED OFF UNIT VIA WC, NO CHANGE IN CONDITION
== END 2020-04-18 14:28 | disposition home health service (06) ==
LOC: OR 05:52 → EDSEX 08:30 → PACU V 10:32 → MED/SURG 12:10 → UNDODISOB 04-18 14:28
PROVIDERS: ADMIT Specialist; ATTEND Specialist
DX: M16.12 Unilateral primary osteoarthritis, left hip (principal); I10 Essential (primary) hypertension; F41.9 Anxiety disorder, unspecified; D64.9 Anemia, unspecified; Z11.59 Encounter for screening for other viral diseases; Z01.810 Encounter for preprocedural cardiovascular examination; Z01.812 Encounter for preprocedural laboratory examination
CPT/HCPCS: 27130; 36415 ×3; 72170; 85014; 85018; 85025 ×2; 86850; 86900; 86920; 87635; 93005; 97116 ×2; 97139; 97161; 97530; C1713 ×3; C1734; C1776; G0378 ×2; J0171; J0690 ×2; J1100; J1885; J2405; J2550; J2704; J2795; J3370; J7030; J7040

== ENCOUNTER 2020-06-09 08:44 | Emergency (ER) | payer OTHER ==
[~2020-06-09] VITALS: Ht 177.8 cm; Wt 90.7 kg
[2020-06-09] MEDS ORDERED: KETOROLAC TROMETHAMINE 30 MG/ML VIAL IV STA (09:04)
[2020-06-09 09:35] LABS: BASOPHILS # (AUTO) 0.1 (0.0-0.1); EOSINOPHILS # (AUTO) 0.1 (0.0-0.4); EOSINOPHILS % 2.4 % (0.0-6.0); HEMATOCRIT 45.4 % (38.2-49.6); HEMOGLOBIN 14.3 g/dL (14.0-18.0); LYMPHOCYTES # (AUTO) 1.4 (1.0-3.2); LYMPHOCYTES % 28.4 % (18.0-39.1); MEAN CORPUSCULAR HEMOGLOBIN 25.4 pg (28-32); MEAN CORPUSCULAR HGB CONC 31.5 g/dL (31-35); MEAN CORPUSCULAR VOLUME 80.8 fL (81-99); MONOCYTES # (AUTO) 0.4 (0.2-0.8); MONOCYTES % 7.5 % (4.4-11.3); NEUTROPHILS % 60.3 % (38.7-80.0); PLATELET COUNT 278 x10e3/uL (140-360); RED BLOOD COUNT 5.62 x10e6/uL (4.3-5.7)
[2020-06-09 09:52] LABS: ALANINE AMINOTRANSFERASE 26 IU/L (0-55); ALBUMIN 4.1 g/dL (3.5-5.0); ALBUMIN/GLOBULIN RATIO 1.2 (0.8-2.0); ALKALINE PHOSPHATASE 94 IU/L (40-150); ANION GAP 12.4 mmol/L (8-16); BLOOD UREA NITROGEN 10 mg/dL (7-26); BUN/CREATININE RATIO 12 (6-25); CALCIUM 9.3 mg/dL (8.4-10.2); CARBON DIOXIDE 28 mmol/L (22-29); CHLORIDE 104 mmol/L (98-107); CREATINE KINASE 111 IU/L (30-200); CREATININE, SERUM 0.85 mg/dL (0.72-1.25); EST GLOMERULAR FILTRATION RATE > 60 ML/MIN (60-); GLUCOSE 102 mg/dL (74-118); INR 0.91; POTASSIUM 4.4 mmol/L (3.5-5.1); PROTHROMBIN TIME 12.8 seconds (11.9-14.5); SODIUM 140 mmol/L (136-145)
[2020-06-09 09:53] LABS: PARTIAL THROMBOPLASTIN TIME 29.2 seconds (23.8-35.5)
--- NOTE | 2020-06-09 10:56 | Emergency Department Note ---
History of Present Illnes History of Present Illness Chief Complaint: Chest Pain History of Present Illness This is a 44 year old male PATIENT IN FROM HOME WITH COMPLAINTS OF CHEST PAIN/PRESSURE SINCE LAST NIGHT; RATES PAIN 3/10. PATIENT ALERT AND ORIENTED, RESP EVEN AND NONLABORED, APPEARS IN NO DISTRESS. Historian: Patient Arrival Mode: Car Clinical Laboratory Aides Teacher Required: No Onset (how long ago): day(s) (last night) Location: CHEST Quality: PAIN Radiation: Reports non-radiation Severity: moderate (5) Onset quality: gradual Timing of current episode: intermittent Progression: waxing and waning Chronicity: new Context: Denies recent illness Relieving factors: none Exacerbating factors: none Associated symptoms: Reports denies other symptoms Treatments prior to arrival: none Past Medical/Family History Physician Review I have reviewed the patient's past medical and family history. Any updates have been documented here. Past Medical History Recent Fever: No Clinical Suspicion of Infectio: No New/Unexplained Change in Ment: No Past Medical History: Anxiety, Depression Past Surgical History: None Other Surgery: LEFT HIP REPLACEMENT Social History Smoking Cessation: Never Smoker Counseling Performed: No Alcohol Use: None Any Illegal Drug Use: No TB Exposure/Symptoms: No Physically hurt or threatened: No Family History Family history of heart diseas: No Other Any Pre-Existing Lines (PICC,: No Review of Systems Review of Systems Constitutional: Reports no symptoms EENTM: Reports no symptoms Cardiovascular: Reports as per HPI Respiratory: Reports no symptoms Gastrointestinal: Reports no symptoms Genitourinary: Reports no symptoms Musculoskeletal: Reports no symptoms Integumentary: Reports no symptoms Neurological: Reports no symptoms Psychological: Reports no symptoms Endocrine: Reports no symptoms Hematological/Lymphatic: Reports no symptoms Physical Exam Related Data Allergies: Coded Allergies: No Known Allergies (Unverified , 04/11/20) Triage Vital Signs Vital Signs Date Time Temp Pulse Resp B/P (MAP) Pulse Ox O2 Delivery O2 Flow Rate FiO2 06/09/20 08:51 97.6 67 20 154/96 100 Room Air Vital signs reviewed: Yes Physical Exam CONSTITUTIONAL Constitutional: Present well-developed, Present well-nourished HENT HENT: Present normocephalic, Present atraumatic, Present oropharynx clear/moist, Present nose normal HENT L/R: Present left ext ear normal, Present right ext ear normal EYES Eyes: Reports PERRL, Reports conjunctivae normal NECK Neck: Present ROM normal PULMONARY Pulmonary: Present effort normal, Present breath sounds normal CARDIOVASCULAR Cardiovascular: Present regular rhythm, Present heart sounds normal, Present capillary refill normal, Present normal rate, Present other (REPRODUCIBLE TENDERNESS MID-STERNUM AND LEFT STERNO-CLAVICULAR AREA) GASTROINTESTINAL Abdominal: Present soft, Present nontender, Present bowel sounds normal GENITOURINARY Genitourinary: Present exam deferred SKIN Skin: Present warm, Present dry MUSCULOSKELETAL Musculoskeletal: Present ROM normal NEUROLOGICAL Neurological: Present alert, Present oriented x 3, Present no gross motor or sensory deficits PSYCHOLOGICAL Psychological: Present mood/affect normal, Present judgement normal Results Laboratory Result Diagram: 06/09/2090206/09/20 0903 Laboratory Laboratory Tests Test 06/09/20 09:03 White Blood Count 4.93 x10e3/uL (4.8-10.8) Red Blood Count 5.62 x10e6/uL (4.3-5.7) Hemoglobin 14.3 g/dL (14.0-18.0) Hematocrit 45.4 % (38.2-49.6) Mean Corpuscular Volume 80.8 fL (81-99) Mean Corpuscular Hemoglobin 25.4 pg (28-32) Mean Corpuscular Hemoglobin Concent 31.5 g/dL (31-35) Red Cell Distribution Width 13.0 % (11.7-14.4) Platelet Count 278 x10e3/uL (140-360) Neutrophils (%) (Auto) 60.3 % (38.7-80.0) Lymphocytes (%) (Auto) 28.4 % (18.0-39.1) Monocytes (%) (Auto) 7.5 % (4.4-11.3) Eosinophils (%) (Auto) 2.4 % (0.0-6.0) Basophils (%) (Auto) 1.0 % (0.0-1.0) Neutrophils # (Auto) 3.0 (2.1-6.9) Lymphocytes # (Auto) 1.4 (1.0-3.2) Monocytes # (Auto) 0.4 (0.2-0.8) Eosinophils # (Auto) 0.1 (0.0-0.4) Basophils # (Auto) 0.1 (0.0-0.1) Absolute Immature Granulocyte (auto 0.02 x10e3/uL (0-0.1) Prothrombin Time 12.8 seconds (11.9-14.5) Prothromb Time International Ratio 0.91 Activated Partial Thromboplast Time 29.2 seconds (23.8-35.5) D-Dimer Quantitative (PE/DVT) 0.45 ug/mLFEU (0.00-0.45) Sodium Level 140 mmol/L (136-145) Potassium Level 4.4 mmol/L (3.5-5.1) Chloride Level 104 mmol/L (98-107) Carbon Dioxide Level 28 mmol/L (22-29) Anion Gap 12.4 mmol/L (8-16) Blood Urea Nitrogen 10 mg/dL (7-26) Creatinine 0.85 mg/dL (0.72-1.25) Estimat Glomerular Filtration Rate > 60 ML/MIN (60-) BUN/Creatinine Ratio 12 (6-25) Glucose Level 102 mg/dL (74-118) Calcium Level 9.3 mg/dL (8.4-10.2) Total Bilirubin 0.5 mg/dL (0.2-1.2) Aspartate Amino Transf (AST/SGOT) 19 IU/L (5-34) Alanine Aminotransferase (ALT/SGPT) 26 IU/L (0-55) Alkaline Phosphatase 94 IU/L (40-150) Creatine Kinase 111 IU/L (30-200) Creatine Kinase MB 0.80 ng/mL (0-5.0) Troponin I < 0.001 ng/mL (0-0.300) B-Type Natriuretic Peptide 23.4 pg/mL (0-100) Total Protein 7.5 g/dL (6.5-8.1) Albumin 4.1 g/dL (3.5-5.0) Globulin 3.4 g/dL (2.3-3.5) Albumin/Globulin Ratio 1.2 (0.8-2.0) Lab results reviewed: Yes Imaging Imaging results reviewed: Yes Impressions EXAMINATION: CHEST SINGLE (PORTABLE) INDICATION: ^CP COMPARISON: None FINDINGS: AP view TUBES and LINES: None. LUNGS/PLEURA: Lungs are well inflated. There is no evidence of pneumonia or pulmonary edema.. There is no pleural effusion or pneumothorax. HEART AND MEDIASTINUM: The cardiomediastinal silhouette is unremarkable. BONES AND SOFT TISSUES: No acute osseous lesion. Soft tissues are unremarkable. UPPER ABDOMEN: No free air under the diaphragm. IMPRESSION: No acute thoracic abnormality. Signed by: Awais Ordonez MD on 06/09/2020 10:58 AM Procedures 12 Lead ECG Interpretation ECG Interpretation : ECG: ECG 1 Clinical Laboratory Aides Teacher: Interpreted by ED physician Date: Jun 09, 2020 Time: 08:54 Rhythm: sinus rhythm Rate: normal (65) QRS axis: normal ST segments normal: Yes T waves normal: Yes Clinical Impression: normal ECG Assessment & Plan Medical Decision Making MDM CBC, CHEM'S, CARDIACS, ECG, CXR - R/O STEMI/NSTEMI, ELECTROLYTE ABNL, MUSCULO- SKELETAL CP, PNEUMONIA, CARDIOMEGALY Reassessment Reassessment i did bedside ECHO - no wall motion abnormalities, good EF, no pericardial effusion. DC Home, OTC Ibuprofen as directed, F/U Dr Jose Alberto Reid Thursday Assessment & Plan Final Impression: (1) Musculoskeletal chest pain Depart Disposition: HOME, SELF-CARE Last Vital Signs Date Time Temp Pulse Resp B/P (MAP) Pulse Ox O2 Delivery O2 Flow Rate FiO2 06/09/20 08:51 97.6 67 20 154/96 100 Room Air Home Meds Reported Medications Bupropion Hcl (WELLBUTRIN SR) 150 Mg Tablet.er, 150 MG PO DAILY 04/11/20 Sertraline Hcl (ZOLOFT) 50 Mg Tablet, 100 MG PO DAILY, #30 TAB 04/11/20 Trazodone Hcl (TRAZODONE HCL) 50 Mg Tablet, 150 MG PO HS, #30 TAB 20/20 Clonazepam (KLONOPIN) 0.5 Mg Tablet, PO PRN 04/11/20 Aripiprazole (ABILIFY) 5 Mg Tablet, 2 MG PO DAILY, #30 TAB 20 Medications in the ED Ketorolac Tromethamine 30 mg ONCE STAT IV Last administered on 06/09/20at 10:38; Admin Dose 30 MG; Start 06/09/20 at 09:04; Stop 06/09/20 at 09:08; Status DC CARIDAD BARNES MD Jun 09, 2020 10:56
--- NOTE | 2020-06-09 11:01 | Diagnostic Imaging Report ---
EXAMINATION: CHEST SINGLE (PORTABLE) INDICATION: ^CP COMPARISON: None FINDINGS: AP view TUBES and LINES: None. LUNGS/PLEURA: Lungs are well inflated. There is no evidence of pneumonia or pulmonary edema.. There is no pleural effusion or pneumothorax. HEART AND MEDIASTINUM: The cardiomediastinal silhouette is unremarkable. BONES AND SOFT TISSUES: No acute osseous lesion. Soft tissues are unremarkable. UPPER ABDOMEN: No free air under the diaphragm. IMPRESSION: No acute thoracic abnormality. Signed by: Awais Ordonez MD on 06/09/2020 10:58 AM
[2020-06-09 11:52] VITALS: BP 141/94
== END 2020-06-09 11:59 | disposition home or self-care (01) ==
LOC: ER 08:54
DX: R07.89 Other chest pain (principal); F41.9 Anxiety disorder, unspecified; F32.9 Major depressive disorder, single episode, unspecified; Z96.642 Presence of left artificial hip joint
CPT/HCPCS: 36415; 71045; 80053; 82550; 82553; 83880; 84484; 85025; 85379; 85610; 85730; 93005; 99284; J1885